=== PATIENT | male | born 1985 | race African-American/Black ===

== ENCOUNTER → 2018-10-05 | Outpatient (CLI) | payer OTHER ==
--- NOTE | 2018-10-05 10:56 | RADIOLOGY REPORT (SQ) ---
EXAM DESCRIPTION: DUPLEX ART/QUANG FLOW COMPLETE COMPLETED DATE/TIME: 10/05/2018 9:34 am REASON FOR STUDY: ULYSSES (I70.1) COMPARISON: None. TECHNIQUE: Realtime and static grayscale images acquired. Selected color Doppler, velocities and spe ctral images recorded. LIMITATIONS: Unable to reliably visualize the renal artery origins off the aorta due to midline leeroy l gas FINDINGS: RIGHT KIDNEY: RENAL ARTERY VELOCITIES: At the hilum, 118 cm/sec. Segmental artery velocity 57 cm/sec. RENAL VEIN: Color doppler flow present, patent. VELOCITY RATIO: 1.1. Normal waveforms. KIDNEY: Right kidney 10.3 cm in length. No significant pathology. LEFT KIDNEY: RENAL ARTERY VELOCITIES: At the hilum, 105 cm/sec. Segmental artery velocity 84 cm/sec. RENAL VEIN: Color doppler flow present, patent. VELOCITY RATIO: 1.0. Normal waveforms. KIDNEY: 10.2 cm in length. No significant pathology. BLADDER: Normal. OTHER: No other significant finding. IMPRESSION: NO DOPPLER EVIDENCE OF HEMODYNAMICALLY SIGNIFICANT RENAL ARTERY STENOSIS. COMMENT: NORMAL RENAL ARTERY/AORTA VELOCITY RATIO IS LESS THAN OR EQUAL TO 3.5. TECHNICAL DOCUMENTATION: JOB ID: [id number] [employer]- All Rights Reserved Reading location - IP/workstation name: [email or web address]
== END ==
LOC: RAD 08:26
PROVIDERS: ATTEND Physician Assistant
DX: I70.1 Atherosclerosis of renal artery (principal)
CPT/HCPCS: 93975